=== PATIENT | female | born 1955 | race Caucasian/White ===

== ENCOUNTER → 2021-07-03 12:22 | Outpatient (BNVA) | payer OTHER, SELFPAY | PROVIDERS: Visit Provider Nurse Practitioner Family | DX: Z20.822 Contact with and (suspected) exposure to COVID-19 (principal) | CPT/HCPCS: 87635 ==

== ENCOUNTER 2021-10-25 06:48 | Outpatient (CLI) | payer OTHER, SELFPAY ==
--- NOTE | 2021-10-25 07:00 | MR_ITS ---
WS: [id number] MRI/MRCP OF THE ABDOMEN WITHOUT GADOLINIUM ENHANCEMENT TECHNIQUE: Thin and thick slab MRCP, Axial T2, Coronal MRCP, Axial Dual Echo, and Axial 2-D Fiesta imaging was obtained. Coronal 2-D Fiesta imaging. CLINICAL INFORMATION: FATTY LIVER DISEASE COMPARISON: Ultrasound September 11, 2021 FINDINGS: Diffuse fatty infiltration of the liver. No intrahepatic biliary ductal dilatation. Prior cholecystec marlene. Dilated common bile duct as seen on ultrasound measures approximately 9 mm. No visualized filli ng defects. No evidence of obstructing choledocholithiasis. Pancreas appears normal. Normal pancreati c duct. Normal pancreatic head. Upper abdominal aorta appears normal. Normal portal vein and splenic vein. Adrenal glands are normal. No hydronephrosis in either kidney. Normal spleen. Bilateral breast prosth esis. MR/MR MRCP [id number] Impression: 1. Mild diffuse fatty infiltration the liver. 2. Prior cholecystectomy. 3. Dilated common bile duct measuring 9 mm as seen on ultrasound. No filling d efects. No evidence of choledocholithiasis. 4. Normal pancreas and pancreatic head. 5. No hydronephrosis in either kidney. 6. No other significant findings.
== END 2021-10-25 06:49 | disposition home or self-care (01) ==
LOC: RAD 06:49
PROVIDERS: PCP Electrodiagnostic Medicine; Visit Provider Electrodiagnostic Medicine
DX: K76.0 Fatty (change of) liver, not elsewhere classified (principal); Z90.49 Acquired absence of other specified parts of digestive tract
CPT/HCPCS: 74181

== ENCOUNTER → 2022-01-23 13:43 | Outpatient (BNVA) | payer OTHER, SELFPAY | PROVIDERS: PCP Electrodiagnostic Medicine; Visit Provider Family Medicine Adult Medicine | DX: R31.9 Hematuria, unspecified (principal); R10.30 Lower abdominal pain, unspecified | CPT/HCPCS: 81000 ==

== ENCOUNTER 2022-02-28 21:06 | Emergency (ER) | payer MEDICARE, SELFPAY ==
[2022-02-28 21:15] VITALS: BP 133/69; PULSE 70; RESP 18; TEMP 36.6; O2SAT 97; BMI 28.5
[2022-02-28 22:21] LABS: Add Urine Microscopic? NO; Charge for UA Resulting for Rev
[2022-02-28 22:28] LABS: Bilirubin Urine Neg (Negative); Blood Urine Neg (Negative); Glucose Urine UA Norm (Normal); Ketones Urine Negative (Negative); Leukocyte Esterase Urine Negative (Negative); Nitrate Urine Negative (Negative); Protein Urine Neg (Negative); Specific Gravity, Urine 1.015 (1.005-1.030); Sulfosalicylic Acid Urine Negative (Negative); Urine Appearance Clear (CLEAR); Urine Color Colorless (Yellow); Urobilinogen Urine Norm (Negative); pH Urine 8 (5-7)
== END 2022-02-28 23:00 | disposition left against medical advice (07) ==
PROVIDERS: Emergency Medicine; Emergency Provider Family Medicine; PCP Electrodiagnostic Medicine
DX: Z53.21 Procedure and treatment not carried out due to patient leaving prior to being seen by health care provider (principal)
CPT/HCPCS: 81003

== ENCOUNTER 2022-12-17 10:09 | Outpatient (CLI) | payer MEDICARE, SELFPAY ==
--- NOTE | 2022-12-17 10:28 | MR_ITS ---
WS: [id number] MRI LUMBAR SPINE NONCONTRAST HISTORY: SPINAL STENOSIS, LUMBAR, RIGHT hip pain. COMPARISON: None available. TECHNIQUE: Sagittal and axial multisequence imaging is submitted. Degenerative disc disease and spondylitic changes in the cervical spine with mild encroachment upon t he ventral cervical cord. No high-grade stenosis. 5 nonrib-bearing lumbar vertebral bodies are numbered. L3 anterolisthesis by 4 mm. Mild disc space narrowing at L3-4 and L4-5 and L5-S1. No fractures or mar row edema. Conus terminates normally at L1. L1-L2: Normal. L2-L3: Very mild LEFT foraminal narrowing. L3-L4: Mild annular disc bulging with moderate ligamentum flavum and facet arthritis. Disc encroaches upon the ventral thecal sac with narrowing of the subarticular recesses. Mild disc contact on the tr aversing L4 nerve roots. L4-L5: Annular disc bulging with moderate ligamentum flavum and facet arthritis. Greater facet joint hypertrophy on the RIGHT. Disc asymmetrically extends into the RIGHT foramen. Mild bilateral foramina l stenosis and subarticular recess encroachment. L5-S1: Mild asymmetric disc bulging with a small central disc protrusion. LEFT foraminal disc protrus ion with annular fissure. Moderate LEFT foraminal stenosis with contact on the exiting LEFT L5 nerve root. Less contact on the LEFT S1 nerve root. Paravertebral soft tissues are negative. MR/MR lumbar spine wo con* [id number] IMPRESSION: 1. 5 lumbar type vertebral bodies. 2. L3 anterolisthesis by 4 mm. 3. Mild LEFT foraminal stenosis at L2-3. 4. Mild disc encroachment upon the traversing L4 nerve roots. 5. Mild bilateral foraminal and subarticular recess encroachment at L4-5. 6. Moderate LEFT foraminal stenosis with disc contact on the exiting LEFT L5 n erve root. Less contact on the LEFT S1 nerve root.
== END 2022-12-17 10:10 | disposition home or self-care (01) ==
PROVIDERS: PCP Electrodiagnostic Medicine; Visit Provider Orthopaedic Surgery
DX: M48.061 Spinal stenosis, lumbar region without neurogenic claudication (principal)
CPT/HCPCS: 72148

== ENCOUNTER → 2023-08-20 15:04 | Outpatient (BNVA) | payer MEDICARE, SELFPAY | PROVIDERS: PCP Electrodiagnostic Medicine; Visit Provider Dermatology | DX: L65.0 Telogen effluvium (principal); L21.8 Other seborrheic dermatitis; L57.8 Other skin changes due to chronic exposure to nonionizing radiation; L70.0 Acne vulgaris; L82.0 Inflamed seborrheic keratosis | CPT/HCPCS: 17110; 99214 ==

== ENCOUNTER → 2023-09-05 10:56 | Outpatient (BNVA) | payer MEDICARE, SELFPAY | PROVIDERS: PCP Electrodiagnostic Medicine; Visit Provider Dermatology | DX: L82.0 Inflamed seborrheic keratosis (principal); L82.1 Other seborrheic keratosis; L57.8 Other skin changes due to chronic exposure to nonionizing radiation | CPT/HCPCS: 17110; 99213 ==